=== PATIENT | female | born 1980 | race Caucasian/White ===

== ENCOUNTER 2017-03-17 08:44 | Emergency (ER) | payer OTHER ==
[2017-03-17 08:50] VITALS: BP 126/74; PULSE 65; TEMP 97; O2SAT 99; BMI 25.5
[2017-03-17] MEDS ORDERED: Amoxicillin-Clav 875-125 mg Tab PO STA (09:17)
--- NOTE | 2017-03-17 09:21 | ED PDOC ---
HPI: CCC, URI, Sore Throat Time Seen by Provider: 03/17/17 09:03 Chief Complaint (Nursing): ENT Problem History Per: Patient History/Exam Limitations: no limitations Onset/Duration Of Symptoms: Days (1), Gradual Current Symptoms Are (Timing): Still Present Location Of Pain: Ear(s) (right) Sick Contacts (Context): None Associated Symptoms: denies: Fever, Chills, Sore Throat, Cough, Sputum, Neck Pain, Sinus Drainage, Myalgias, Nasal Congestion, Nausea, Vomiting, Diarrhea Ear Symptoms: Right: Ear Pain, Ear Fullness, Decreased Hearing Severity: Mild Additional History Per: Patient Additional Complaint(s): Pt c/o right ear pain and difficulty hearing x1 day. Denies taking medication. s /p recent miscarriage last week per pt. no vag bleeding Past Medical History Reviewed: Historical Data, Nursing Documentation, Vital Signs Vital Signs: Last Vital Signs Temp 97 F L 03/17/17 08:48 Pulse 65 03/17/17 08:48 Resp BP 126/74 03/17/17 08:48 Pulse Ox 99 03/17/17 08:48 - Medical History PMH: No Chronic Diseases - Family History Family History: States: Unknown Family Hx - Living Arrangements Living Arrangements: With Family - Social History Current smoker - smoking cessation education provided: No - Home Medications Home Medications: Ambulatory Orders Medication Instructions Recorded Amoxicillin/Clavulanate [Augmentin 1 tab PO BID 10 Days 03/17/17 875 MG-125 MG] - Allergies Allergies/Adverse Reactions: Allergies Allergy/AdvReac Type Severity Reaction Status Date / Time No Known Allergies Allergy Verified 03/17/17 09:10 Review of Systems ROS Statement: Except As Marked, All Systems Reviewed And Found Negative Constitutional: Negative for: Fever, Chills ENT: Positive for: Ear Pain (right). Negative for: Ear Discharge, Nose Pain, Nose Discharge, Nose Congestion, Mouth Pain, Mouth Swelling, Throat Pain Cardiovascular: Negative for: Chest Pain, Palpitations Respiratory: Negative for: Cough, Shortness of Breath Gastrointestinal: Negative for: Nausea, Vomiting, Abdominal Pain, Diarrhea Musculoskeletal: Negative for: Neck Pain Neurological: Negative for: Weakness, Numbness, Headache Physical Exam - Reviewed Nursing Documentation Reviewed: Yes Vital Signs Reviewed: Yes - Physical Exam Appears: Positive for: Well, Uncomfortable Head Exam: Positive for: ATRAUMATIC, NORMAL INSPECTION, NORMOCEPHALIC Eye Exam: Positive for: Normal appearance, EOMI, PERRL ENT: Positive for: TM Is/Are (right tm with erythema, mild pus, dullness) Neck: Positive for: Normal, Painless ROM, Supple Cardiovascular/Chest: Positive for: Regular Rate, Rhythm, Chest Non Tender. Negative for: Edema, Gallop, Murmur, Bradycardia, Tachycardia Respiratory: Positive for: Normal Breath Sounds. Negative for: Decreased Breath Sounds, Accessory Muscle Use, Crackles, Rales, Rhonchi, Stridor, Wheezing Gastrointestinal/Abdominal: Positive for: Normal Exam, Bowel Sounds, Soft. Negative for: Tenderness Neurologic/Psych: Positive for: Alert, computer programmer analyst II-XII, Oriented, Gait (steady). Negative for: Motor/Sensory Deficits - ECG O2 Sat by Pulse Oximetry: 99 Pulse Ox Interpretation: Normal - Progress ED Course And Treament: pt refused test. will treat for r OM. Re-evaluation Time: 09:22 Condition: Improved Disposition - Clinical Impression Clinical Impression: Otitis media, right - Patient ED Disposition Is Patient to be Admitted: No Counseled Patient/Family Regarding: Studies Performed, Diagnosis, Need For Followup, Rx Given - Disposition Referrals: Odilon Whitley MD [Staff Provider] - (2 to 3 days) Disposition: Routine/Home Disposition Time: 09:00 Condition: STABLE Prescriptions: Amoxicillin/Clavulanate [Augmentin 875 MG-125 MG] 1 tab PO BID 10 Days Instructions: Otitis Media (ED) Forms: [employer] (Sl[place]ak)
== END 2017-03-17 09:34 | disposition home or self-care (01) ==
LOC: H.ER 08:44 → EDBD 08:44 → H.ER 09:34
DX: H66.91 Otitis media, unspecified, right ear (principal)